=== PATIENT | female | born 1950 | race Caucasian/White ===

== ENCOUNTER 2025-01-11 19:30 | Observation (INO) | payer MEDICARE, SELFPAY ==
[2025-01-11] VITALS (13 sets, daily range): BP systolic 127–156; BP diastolic 70–92; PULSE 65–93; RESP 16–18; TEMP 36.9–37.2; O2SAT 93–100; BMI 21.2; BMI 21.8
--- NOTE | 2025-01-11 19:38 | CRLHL7_ITS ---
For Patients: As a result of the Century Cures Act, medical imaging exams and procedure reports are released immediately into your electronic medical record. You may view this report before your referring provider. If you have questions, please contact your health care provider. INDICATION: Acute stroke. TECHNIQUE: CTA neck with contrast bolus tracking, 3D angiographic rendering using maximum intensity projection (MIP) and images permanently archived. FINDINGS: There is carotid atherosclerosis bilaterally. There is no significant carotid artery stenosis or dissection. There is no significant vertebral artery stenosis or dissection. The soft tissues of the neck are within normal limits. The cervical spine is in normal alignment. Degenerative changes are noted in the cervical spine. IMPRESSION: No significant carotid or vertebral artery stenosis or dissection. The left JAY occlusion described in the CTA head report is likely artifactual. Please note that all CT scans at this facility use dose modulation, iterative reconstruction, and/or weight-based dosing when appropriate to reduce radiation dose to as low as reasonably achievable. Dictated by Hunter Bello MD @ 01/12/2025 12:24:29 PM (Electronically Signed)
--- NOTE | 2025-01-11 19:38 | CRLHL7_ITS ---
For Patients: As a result of the Century Cures Act, medical imaging exams and procedure reports are released immediately into your electronic medical record. You may view this report before your referring provider. If you have questions, please contact your health care provider. INDICATION: Acute stroke. TECHNIQUE: CTA head with contrast bolus tracking, 3D angiographic rendering using maximum intensity projection (MIP) and images permanently archived. FINDINGS: There is scattered intracranial atherosclerotic disease. There is a left JAY occlusion. There is no large vessel occlusion. No aneurysm is identified. IMPRESSION: No large vessel occlusion. Please note that all CT scans at this facility use dose modulation, iterative reconstruction, and/or weight-based dosing when appropriate to reduce radiation dose to as low as reasonably achievable. Dictated by Hunter Bello MD @ 01/12/2025 12:22:21 PM (Electronically Signed)
--- NOTE | 2025-01-11 19:38 | CRLHL7_ITS ---
For Patients: As a result of the Cures Act, medical imaging exams and procedure reports are released immediately into your electronic medical record. You may view this report before your referring provider. If you have questions, please contact your health care provider. INDICATION: Dyspnea. TECHNIQUE: Chest radiograph, 1 view. COMPARISON: None. FINDINGS: Cardiovascular/Mediastinum: Normal heart size. Unremarkable. Lungs: No focal consolidation. Airways: Trachea remains midline. Pleura: No pleural effusions or pneumothorax. Bones: No acute osseous abnormalities. Upper abdomen: Unremarkable. IMPRESSION: No acute cardiopulmonary process. Dictated by Kiel Mckay MD @ 01/11/2025 8:22:53 PM (Electronically Signed)
--- NOTE | 2025-01-11 19:38 | CRLHL7_ITS ---
For Patients: As a result of the Century Cures Act, medical imaging exams and procedure reports are released immediately into your electronic medical record. You may view this report before your referring provider. If you have questions, please contact your health care provider. INDICATION: L facial droop, numbness L face and arm, slurred speech TECHNIQUE: CT of the head without contrast. Coronal and sagittal reformats. Bone and soft tissue algorithms. COMPARISON: No prior studies available for comparison at this institution. FINDINGS: No acute intracranial hemorrhage or extra-axial collection. No evidence of acute cortical infarction. No mass effect or midline shift. Mild generalized parenchymal volume loss. Mild regions of decreased attenuation within the periventricular and subcortical white matter of both cerebral hemispheres most likely reflect chronic microvascular ischemic disease and age related change in this patient. Vascular calcifications within the carotid siphons. Orbital contents are normal. No calvarial fractures. No lytic or sclerotic osseous lesions within the calvarium or skull base. Scalp and other imaged soft tissue structures are normal. Mastoid air cells are clear. IMPRESSION: No acute intracranial abnormality. Please note that all CT scans at this facility use dose modulation, iterative reconstruction, and/or weight-based dosing when appropriate to reduce radiation dose to as low as reasonably achievable. Dictated by Figueroa Moya MD @ 01/11/2025 8:14:49 PM (Electronically Signed)
--- NOTE | 2025-01-11 19:39 | ED.GENADULT ---
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 She does have type 2 diabetes. No history of stroke, cerebrovascular disease, heart attack, or other vascular disease. No history of AFib. She is not on any anticoagulants. About 15 minutes prior to arrival she had onset of neurologic symptoms including some slurred speech and left facial droop affecting left corner of her mouth. She also felt a little bit of numbness of her left arm and maybe weakness of her left arm temporarily that is now gone. Also just a funny feeling affecting the left side of her body including the arm and leg. She does not have a headache. Vision is normal. She has not had any previous symptoms like this. No other illness lately. She was eating birthday cake at her granddaughter's birthday democrat. Her blood sugar obtained at triage is a bit higher than normal at 333. Related Data Allergies Allergy/AdvReac Type Severity Reaction Status Date / Time No Known Drug Allergies Allergy Verified 01/11/25 19:56 [facility] Medical History (Updated 01/11/25 @ 22:41 by Vinod Suarez MD) Essential hypertension ?I10 - Essential (primary) hypertension (ICD-10) Vitamin D deficiency ?E55.9 - Vitamin D deficiency, unspecified (ICD-10) Hyperlipidemia ?E78.5 - Hyperlipidemia, unspecified (ICD-10) Diabetic neuropathy ?E11.40 - Type 2 diabetes mellitus with diabetic neuropathy, unspecified (ICD-10) Chronic migraine Osteoarthritis ?M19.90 - Unspecified osteoarthritis, unspecified site (ICD-10) Diabetes mellitus type II, controlled ?E11.9 - Type 2 diabetes mellitus without complications (ICD-10) Surgical History Status post right knee replacement ?Z96.651 - Presence of right artificial knee joint (ICD-10) S/P total abdominal hysterectomy and bilateral salpingo-oophorectomy ?Z90.710 - Acquired absence of both cervix and uterus (ICD-10) ?Z90.722 - Acquired absence of ovaries, bilateral (ICD-10) ?Z90.79 - Acquired absence of other genital organ(s) (ICD-10) Status post cataract extraction ?Z98.49 - Cataract extraction status, unspecified eye (ICD-10) Family History Mother Breast cancer Diabetes Father High blood pressure Social History What is your current living situation?: I presently have a place to live Problems where you live: no known problems Problems where you live details: n/a In the past 12 months, utilities in danger of being shut off: no In past 12 months, lack of transportation kept you from medical appts, meetings, work, or getting things needed for daily living: no In the past 12 mos, have been you worried that your food would run out before you had money to buy more?: never true In the past 12 mos, the food you bought just didn't last and you didn't have money to buy more?: never true Smoking Status: Never smoker How often do you have a drink containing alcohol: 2-4 times a month Alcohol type: wine How often do you have six or more drinks on one occasion: Never AUDIT-C Alcohol total score: 2 Non-prescribed substance use: denies use Caffeine: No How often does anyone, including family, friends and others, physically hurt you: never How often does anyone, including family, friends and others, insult or talk down to you: never How often does anyone, including family, friends and others, threaten you with harm: never How often does anyone, including family, friends and others, scream or curse at you: never service: No Exam Narrative: Exam Narrative: Constitutional: Appears well-developed and well-nourished. Alert. Conversant. Non toxic. HENT: Head: Atraumatic. Nose: Nose normal. Mouth/Throat: Oral mucosa is clear and moist. no trismus. Pharynx normal. Tonsils symmetric. No tonsillar enlargement, erythema, or exudate. Eyes: Conjunctivae normal. EOM normal. Pupils equal, round, and reactive to light. No scleral icterus. Neck: Normal range of motion. Neck supple. No tracheal deviation present. Cardiovascular: Normal rate, regular rhythm. No gallop. No friction rub. No murmur heard. Symmetric radial artery pulses Pulmonary/Chest: Effort normal. No stridor. No respiratory distress. No wheezes. No rales. No rhonchi . Abdominal: Soft. Nondistended. Musculoskeletal: RUE: Normal range of motion. No tenderness. No deformity LUE: Normal range of motion. No tenderness. No deformity RLE: Normal range of motion. No edema. No tenderness. No deformity LLE: Normal range of motion. No edema. No tenderness. No deformity Lymph: No cervical adenopathy. Neurological: Mental status normal. Attention normal. Alert and oriented x3. GCS 15. Memory normal. Speech slightly slurred. Cognition normal. Cranial Nerves intact II-XII except for left facial droop affecting her lower face but not her forehead. Subtle subjective paresthesias on the lower 2/3 of her left face. I did not formally test gag or visual acuity. Visual benavides are full to confrontation. EOMI. Palate elevates symmetrically and tongue protrudes in the midline. Strength: 5/5 trapezius on the right and left 5/5 deltoid on the right and left 5/5 biceps on the right and left 5/5 triceps on the right and left 5/5 district wildlife manager on the right and left 5/5 thumb opposition on the right and left 5/5 finger abduction on the right and left 5/5 hip flexors (L3) on the right and left 5/5 quadriceps (L4) on the right and left 5/5 tibialis anterior on the right and left 5/5 EHL (L5) on the right and left 5/5 gastrocnemius (S1) on the right and left 5/5 hamstring on the right and left Sensation subjective intact to light touch in both upper extremities (C4-T1) Sensation subjectively intact to light touch in Both lower extremities (L4-S1). Finger to nose and coordination normal. Gait normal. Psychiatric: Normal mood. Normal affect. Very polite. Const: Vital Signs, click to edit/add: Vital Signs - 24 hr 01/11/25 19:31 01/11/25 20:15 01/11/25 20:16 Temperature 99 F Pulse Rate 79 82 Pulse Rate [Pulse Oximeter] 85 Respiratory Rate 16 18 Blood Pressure 150/81 H Blood Pressure [Ri ght Upper Arm] 156/92 H Pulse Oximetry 99 100 93 Oxygen Delivery Me thod Room Air 01/11/25 20:17 01/11/25 20:30 01/11/25 20:32 Temperature Pulse Rate 86 87 76 Pulse Rate [Pulse Oximeter] Respiratory Rate 18 Blood Pressure 148/86 H 143/87 H 142/75 H Blood Pressure [Ri ght Upper Arm] Pulse Oximetry 99 98 99 Oxygen Delivery Me thod 01/11/25 20:33 01/11/25 20:45 01/11/25 20:47 Temperature Pulse Rate 81 81 83 Pulse Rate [Pulse Oximeter] Respiratory Rate 16 Blood Pressure 136/77 Blood Pressure [Ri ght Upper Arm] Pulse Oximetry 97 95 99 Oxygen Delivery Me thod 01/11/25 20:48 01/11/25 21:00 Temperature Pulse Rate 93 80 Pulse Rate [Pulse Oximeter] Respiratory Rate Blood Pressure Blood Pressure [Ri ght Upper Arm] Pulse Oximetry 99 98 Oxygen Delivery Me thod Course Course ED Course: Back from CT. Stroke Neurology consult complete by tele stroke. Dr. Grajeda feels that her NIH is improving and is actually down to 1. I recheck the patient and she still does have a slight dull left facial droop and a very subtle slurred speech but otherwise normal. NIH is definitely improving. Arm symptoms are now totally resolved. At this point with mild ongoing symptoms and overall improving symptoms, stroke Neurology and I agree that the risk of the bleeding from thrombolytics would outweigh the benefit. However the patient will be admitted for monitoring and further workup as to the cause of the stroke. Dr. Grajeda recommends treatment with anti-platelet agents for now-ordered here in the ER. Vital Signs Vital signs: Initial Vital Signs Temperature 99 F 01/11/25 19:31 Temperature Source Temporal Artery Scan 01/11/25 19:31 Pulse Rate 85 01/11/25 19:31 Respiratory Rate 16 01/11/25 19:31 Blood Pressure 156/92 H 01/11/25 19:31 Blood Pressure Mean 113 H 01/11/25 19:31 Blood Pressure Position Sitting 01/11/25 19:31 Pulse Oximetry 99 01/11/25 19:31 Oxygen Delivery Method Room Air 01/11/25 19:31 Vital Signs Temperature 99 F 01/11/25 19:31 Pulse Rate 85 01/11/25 19:31 Respiratory Rate 16 01/11/25 19:31 Blood Pressure 156/92 H 01/11/25 19:31 Pulse Oximetry 99 01/11/25 19:31 Oxygen Delivery Method Room Air 01/11/25 19:31 Temperature 98.5 F 01/11/25 23:26 Pulse Rate 65 01/11/25 23:26 Respiratory Rate 16 01/12/25 00:55 Blood Pressure 128/85 01/11/25 23:26 Pulse Oximetry 94 01/12/25 00:55 Oxygen Delivery Method Room Air 01/12/25 00:55 Medications Administered Medications: Generic Name Dose Route Start Last Admin Trade Name Freq PRN Reason Stop Dose Admin Rosuvastatin Calcium 10 mg 01/11/25 22:35 01/11/25 23:58 Rosuvastatin Calcium 10 Mg Tablet PO 10 mg HS STEPHEN Administration Sitagliptin Phosphate 100 mg 01/11/25 22:35 01/11/25 23:54 Sitagliptin Phosphate 50 Mg Tablet PO Not Given HS STEPHEN Discontinued Medications Generic Name Dose Route Start Last Admin Trade Name Freq PRN Reason Stop Dose Admin Aspirin 325 mg 01/11/25 20:37 01/11/25 20:43 Aspirin Ec 325 Mg Tablet PO 01/11/25 20:38 325 mg ONCE ONE Administration Clopidogrel Bisulfate 300 mg 01/11/25 20:37 01/11/25 20:46 Clopidogrel 300 Mg Tablet PO 01/11/25 20:38 300 mg ONCE ONE Administration Medical Decision Making [facility] Narrative Medical decision making narrative: Very pleasant 74-year-old female with a history of diabetes. She presents to the ER today with acute neurologic symptoms including left facial droop, and left facial numbness, mildly slurred speech, transient left arm and leg numbness and transient left arm weakness. Now all symptoms are resolved. Except for very subtle ongoing left facial droop and very mildly slurred speech. Symptoms concerning for acute stroke. Differential here would include non stroke etiology such as Stevenson's palsy (however with the associated arm and leg symptoms, and sparing of the forehead, I do not think this represent Stevenson's). No antecedent seizure. No recent head trauma. No evidence for intracranial bleeding on her head CT. Blood sugar is elevated at 300 but that is atypical for her and apparently is related to birthday cake. She was out to dinner for her granddaughter's birthday when symptoms began. There is no evidence for DKA or nonketotic hyperosmolar coma. Laboratory workup was otherwise reassuring. Head CT is negative for bleed. Although this patient is in the window for thrombolytics, given overall mild symptoms and very good progression towards resolution here in the ER, at this point we feel that the risk of bleeding from thrombolytic would outweigh the benefit. Therefore thrombolytics was not administered here in the ER. Lab Data Labs: Lab Results 01/11/25 Range/Units 14:48 WBC 6.31 (4.50-11.00) K/uL RBC 3.95 L (4.00-5.20) m/uL Hgb 12.6 (12.0-16.0) gm/dL Hct 37.4 (33.0-51.0) % MCV 95 (80-100) fL MCH 32 (26-34) pg MCHC 34 (32-36) gm/dL RDW Coeff of [place] 12.8 (11.5-15.5) % Plt Count 254 (140-440) K/uL Neut % (Auto) 52.9 (42.0-72.0) % Lymph % (Auto) 29.3 (20-44) % [place] % (Auto) 12.5 H (0.0-11.0) % Eos % (Auto) 4.0 (0.0-7.0) % Baso % (Auto) 1.1 (0.0-3.0) % Neut # (Auto) 3.34 (1.7-7.0) K/uL Lymph # (Auto) 1.85 (0.90-2.90) K/uL [place] # (Auto) 0.80 (0.00-0.90) K/UL Eos # (Auto) 0.25 (0.00-0.50) K/uL Baso # (Auto) 0.07 (0.00-0.30) K/uL Abs Immat Gran (auto) 0.01 (0.00-0.30) K/uL Imm/Tot Granulo (auto) 0.2 % INR 0.99 (0.91-1.10) Sodium 129 L (135-149) mmol/L Potassium 4.6 (3.6-5.1) mmol/L Chloride 98 (96-114) mmol/L Carbon Dioxide 21 (20-32) mmol/L Anion Gap 10 (7-15) mEq/L BUN 23 (7-30) mg/dL Creatinine 0.7 (0.5-1.5) mg/dL Estimated Creat Clear 53.89 Estimated GFR 92 ml/min Glucose 332 H (60-115) mg/dL Calcium 8.6 (8.4-10.6) mg/dL Magnesium 2.1 (1.5-2.6) mg/dL Troponin I < 0.01 (0.01-0.04) ng/mL Imaging Data CTA head and neck: Attestation: I have reviewed the pertinent imaging results. Radiologist's impression: Preliminary Report: CTA head: 1. No evidence of proximal artery occlusion, high grade stenosis, aneurysm, dissection, or vascular malformation. 2. Final report per neurointerventional radiology service. Preliminary Report: CTA neck: 1. No evidence of proximal artery occlusion, high grade stenosis, aneurysm, dissection, or vascular malformation. 2. 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 Left vertebral artery terminates as the PICA, normal variants. 3. Approx 50 percent right ICA stenosis. No left ICA stenosis. ECG Data Attestation: I personally reviewed and interpreted this ECG as follows: Interpretation: Normal sinus rhythm Rate 79 ID interval 154 . Possible left atrial enlargement Normal QRS axis No ST segment elevation or depression. QTC 431 Discharge Plan Discharge Clinical Impression: Cerebrovascular accident Patient Disposition: Admitted As Observation
[2025-01-11 19:55] LABS: Hematocrit 37.4 % (33.0-51.0); Hemoglobin* 12.6 gm/dL (12.0-16.0); Immature Granulocytes Abs Auto 0.01 K/uL (0.00-0.30); Immature Granulocytes Pct Auto 0.2 %; Lymphocytes Absolute Auto 1.85 K/uL (0.90-2.90); Mean Corpuscular HGB Conc 34 gm/dL (32-36); Mean Corpuscular Hemoglobin 32 pg (26-34); Mean Corpuscular Volume 95 fL (80-100); RDW Coefficient of Variation % 12.8 % (11.5-15.5); Red Blood Count 3.95 m/uL (4.00-5.20); White Blood Count* 6.31 K/uL (4.50-11.00)
[2025-01-11 20:08] LABS: Chloride* 98 mmol/L (96-114); Potassium* 4.6 mmol/L (3.6-5.1); Sodium* 129 mmol/L (135-149)
[2025-01-11 20:11] LABS: Anion Gap 10 mEq/L (7-15); Blood Urea Nitrogen* 23 mg/dL (7-30); Carbon Dioxide* 21 mmol/L (20-32); Creatinine* 0.7 mg/dL (0.5-1.5); Est. Creatinine Clearance* 53.89; Estimated Glomerular Filt Rate 92 ml/min; INR 0.99 (0.91-1.10); Prothrombin Time 13.9 Seconds
[2025-01-11 20:12] LABS: Calcium* 8.6 mg/dL (8.4-10.6); Glucose* 332 mg/dL (60-115)
[2025-01-11 20:14] LABS: Slide Review Reflex No
[2025-01-11] MEDS: ASPIRIN EC 325 MG TABLET PO (20:43)
[2025-01-11] MEDS: CLOPIDOGREL 300 MG TABLET PO (20:46)
--- NOTE | 2025-01-11 22:30 | P.IMHP_ITS ---
Assessment and Plan Assessment and plan (1) Cerebrovascular accident: Problem comment: - 01/11/2025: transient left facial droop and numbness, left upper extremity weakness and numbness Status: Acute (2) Diabetes mellitus type II, controlled: Problem comment: - HgA1C was 7.8 on 01/10/2025, last 3 checks Status: Acute (3) Essential hypertension: Problem comment: - controlled Status: Acute (4) Hyperlipidemia: Problem comment: - not medically managed on admission 01.11.2025 but willing to initiate therapy Status: Acute Plan 1. Reviewed impression, plans, recommendation with patient, , and son 2. Answered their questions 3. They are agreeable with above stated plans and recommendations Total Time Spent Total Time Spent: 65 minutes Hospitalist- H&P: HPI History of Present Illness Date Seen: 01/11/25 Chief complaint: possible stroke Narrative: Melissa Larsen is a 74 year old woman was in her usual health until around 6:30 p.m. on 01/11/2025 when she had the sudden onset of left facial droop and numbness with associated slurred speech as well as left upper extremity weakness and numbness. Has never had anything like this in the past. She immediately told her who brought her to the emergency department promptly. By the time she arrived at the emergency department the left upper extremity symptoms had already resolved and much of left facial symptoms started to resolve. There was still transient left facial weakness apparent nevertheless. CT scan of head demonstrated no acute intracranial abnormalities. CT angiogram of head and neck demonstrated no significant abnormalities either. Patient had emergent consultation with Stroke Neurology who recommended admission to the hospital for observation, dual anti-platelet therapy with aspirin 325 mg and clopidogrel 300 mg once, and then aspirin 81 mg daily and clopidogrel 75 mg daily for 3 weeks, followed by monotherapy with either aspirin 3 and 25 mg once daily or clopidogrel 75 mg once daily thereafter. Neurologist recommended permissive hypertension, maintain euglycemia, monitor for cardiac arrhythmia, DVT prophylaxis, MRI of head, fasting lipid profile, hemoglobin A1c. Review of Systems Status of ROS: Reports: 6 or more systems reviewed and unremarkable except as noted in History and below Narrative: Working with her primary clinical manager home care in regard to all her health care inc luding diabetes mellitus type 2 and hypertension as well as recent unexplained weight loss of about 10-15 lb with most recent weight 150-151 lb. No recent trauma, injury, blood loss of any sort. No recent illnesses, fevers, rigors, diaphoresis. Usual state of health with no cardiopulmonary, gastrointestinal, genitourinary concerns. Medical Decision Making Medical Decision Making Code Status: Full resuscitation in event of cardiopulmonary demise During This Stay, Who Would You Like To Make Decisions For You In The Event You Are Unable To Make Them For Yourself?: , Mendez, Relevant situational information: Does not want to be kept alive in a persistent of vegetative state [facility] Medical History (Updated 01/11/25 @ 22:41 by Vinod Suarez MD) Essential hypertension ?I10 - Essential (primary) hypertension (ICD-10) Vitamin D deficiency ?E55.9 - Vitamin D deficiency, unspecified (ICD-10) Hyperlipidemia ?E78.5 - Hyperlipidemia, unspecified (ICD-10) Diabetic neuropathy ?E11.40 - Type 2 diabetes mellitus with diabetic neuropathy, unspecified (ICD-10) Chronic migraine Osteoarthritis ?M19.90 - Unspecified osteoarthritis, unspecified site (ICD-10) Diabetes mellitus type II, controlled ?E11.9 - Type 2 diabetes mellitus without complications (ICD-10) Surgical History Status post right knee replacement ?Z96.651 - Presence of right artificial knee joint (ICD-10) S/P total abdominal hysterectomy and bilateral salpingo-oophorectomy ?Z90.710 - Acquired absence of both cervix and uterus (ICD-10) ?Z90.722 - Acquired absence of ovaries, bilateral (ICD-10) ?Z90.79 - Acquired absence of other genital organ(s) (ICD-10) Status post cataract extraction ?Z98.49 - Cataract extraction status, unspecified eye (ICD-10) Family History Mother Breast cancer Diabetes Father High blood pressure Meds Home Medications and Allergies Allergies Allergy/AdvReac Type Severity Reaction Status Date / Time No Known Drug Allergies Allergy Verified 01/11/25 19:56 Exam Const: Vital Signs, click to edit/add: Vital Signs - 24 hr 01/11/25 19:31 01/11/25 20:15 01/11/25 20:16 Temperature 99 F Pulse Rate 79 82 Pulse Rate [Pulse Oximeter] 85 Respiratory Rate 16 18 Blood Pressure 150/81 H Blood Pressure [Ri ght Upper Arm] 156/92 H Pulse Oximetry 99 100 93 [facility] 01/11/25 20:17 01/11/25 20:30 01/11/25 20:32 Temperature Pulse Rate 86 87 76 Pulse Rate [Pulse Oximeter] Respiratory Rate 18 Blood Pressure 148/86 H 143/87 H 142/75 H Blood Pressure [Ri ght Upper Arm] Pulse Oximetry 99 98 99 [facility] 01/11/25 20:33 01/11/25 20:45 01/11/25 20:47 Temperature Pulse Rate 81 81 83 Pulse Rate [Pulse Oximeter] Respiratory Rate 16 Blood Pressure 136/77 Blood Pressure [Ri ght Upper Arm] Pulse Oximetry 97 95 99 [facility] 01/11/25 20:48 01/11/25 21:00 Temperature Pulse Rate 93 80 Pulse Rate [Pulse Oximeter] Respiratory Rate Blood Pressure Blood Pressure [Ri ght Upper Arm] Pulse Oximetry 99 98 [facility] - H&P: Result Labs Labs: Short CBC 01/11/25 Range/Units 14:48 WBC 6.31 (4.50-11.00) K/uL Hgb 12.6 (12.0-16.0) gm/dL Hct 37.4 (33.0-51.0) % Plt Count 254 (140-440) K/uL BMP 01/11/25 14:48 Sodium 129 L Potassium 4.6 Chloride 98 Carbon Dioxide 21 BUN 23 Creatinine 0.7 Glucose 332 H Calcium 8.6 Cardiac Enzymes 01/11/25 Range/Units 14:48 Troponin I < 0.01 (0.01-0.04) ng/mL Imaging CT scan - head: Attestation: I have reviewed the pertinent imaging results. Radiologist's impression: No acute intracranial abnormalities. CT head and neck angiogram: Radiologist's impression: No major abnormalities noted
[2025-01-11] MEDS: ROSUVASTATIN CALCIUM 10 MG TABLET PO (23:58)
--- NOTE | 2025-01-12 00:05 | CRLHL7_ITS ---
For Patients: As a result of the Century Cures Act, medical imaging exams and procedure reports are released immediately into your electronic medical record. You may view this report before your referring provider. If you have questions, please contact your health care provider. Indication: Transient left facial droop and dysarthria Technique: Multiplanar, multisequence MR images of the brain were obtained without the administration of IV contrast. Comparison: CT head January 11, 2025 Findings: On midline sagittal T1 images there are preserved flow voids within the sagittal sinuses. The corpus callosum is preserved in signal and contour. The pituitary gland is unremarkable without evidence of remodeling of the sella turcica. There is no significant cerebellar tonsillar ectopia. On diffusion-weighted sequences, there is demonstration of a punctate focus of restricted diffusion within the right dunaway radiata white matter with minimal cytotoxic edema. Otherwise, no evidence of additional foci of restricted diffusion. On blood sensitive sequences, there is no evidence of or chronic hemorrhage. Again seen is global cortical atrophy with sulcal widening and ex vacuo dilatation of the lateral ventricles. There is moderate chronic small vessel disease change within the subcortical and periventricular white matter. Additional chronic small vessel disease changes of the central alexis and midbrain are appreciated. Otherwise, the remaining brain parenchyma is preserved in signal intensity. The flow voids at the skull base are unremarkable. The orbits and their contents are within normal limits. There is extensive mucosal thickening within the paranasal sinuses. The mastoid air cells are clear. Impression: 1. Demonstration of an evolving subacute lacunar infarct within the right dunaway radiata white matter. No evidence of large territorial infarct. 2. Otherwise, age related and chronic small-vessel disease changes of the brain without acute intracranial abnormality. Dictated by Mauricio Curran MD @ 01/12/2025 10:09:49 AM (Electronically Signed)
[2025-01-12 00:55] VITALS: RESP 16; O2SAT 94
[2025-01-12 03:00] VITALS: BP 130/73; PULSE 73; RESP 16; O2SAT 98
--- NOTE | 2025-01-12 06:49 | PC.NURSE ---
The patient is pleasant with cares. Most of the patients neuro symptoms that brought her to the ED have resolved, the one lingering symptom she has is some numbness and tingling inside of her L cheek. Hr and all other VS are stable. Up ad loren. SCDS on throughout the night. The patient has chronic neuropathy in BLE, she reported that the SCDS helped with the pain. EKG completed this AM per ordeer, MRI and ECHO to happen today. The patient hopes to go home after these. Tracee BENNETT BSN
[2025-01-12 07:35] VITALS: BP 150/98; PULSE 90; RESP 18; TEMP 36.9; O2SAT 98
[2025-01-12 08:35] VITALS: PULSE 77
[2025-01-12] MEDS: ASPIRIN 81 MG TABLET EC PO (09:28)
[2025-01-12] MEDS: SODIUM CHLORIDE 0.9 % (FLUSH) 10 ML SYRINGE 5 ML IVF (09:29)
[2025-01-12] MEDS: CLOPIDOGREL 75 MG TABLET PO (09:29)
--- NOTE | 2025-01-12 10:28 | NUTR.NU ---
Nutrition Education r/t MD consult for stroke and type 2 diabetes. Diet order Diabetic, Heart Healthy Diet. Intake 100% at breakfast. Admit CVA. Patient reports a long history of diabetes with past education received. She reports no need for additional education. Accepted handouts of Heart-Healthy Consistent Nutrition (NCM) and Healthy Plate for diabetes. Encouraged patient to contact if questions. Monitor and follow up if needed.
[2025-01-12 11:00] VITALS: BP 146/83; PULSE 70; RESP 18; O2SAT 98
--- NOTE | 2025-01-12 13:17 | PM.DS1 ---
DS: Providers Provider Date Seen: 01/12/25 Date of admission: 01/11/25 21:01 Primary care physician: Not a Local Provider Admitting Clinician: Vinod Suarez MD Consults: 01/11/25 22:35 Consult to Nutrition [CONS] Routine Comment: Reason for consult:: Miscellaneous Comment: stroke, DMTii Consult to Occupational Therapy [CONS] Routine Comment: Reason(s) for OT Consult:: Evaluate and Treat Any Restrictions?:: No Restrictions Consult to Physical Therapy [CONS] Routine Comment: Reason(s) for PT Consult:: Evaluate and Treat Any Restrictions?:: No Restrictions Consult to Speech Therapy [CONS] Routine Comment: Reason(s) for Speech Consult:: Speaking Difficulty Comment: transient dysarthria Attending Physician on discharge: Demi Dougherty [facility] [place] [facility] Date of Discharge: 01/12/25 DS: Diagnosis Discharge Diagnosis (1) Cerebrovascular accident: Status: Acute Problem details: - 01/11/2025: transient left facial droop and numbness, left upper extremity weakness and numbness MRI 01/12 shows demonstration of an evolving subacute lacunar infarct within the right dunaway radiata white matter. 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 Please call the clinic scheduling department at [phone] to schedule your appointment. (2) Diabetes mellitus type II, controlled: Status: Acute Problem details: - HgA1C was 7.8 on 01/10/2025, last 3 checks (3) Essential hypertension: Status: Acute Problem details: - controlled Resume home medications on 01/13 (4) Hyperlipidemia: Status: Acute Problem details: - not medically managed on admission 01.11.2025 but willing to initiate therapy Discharged on rosuvastatin 10 mg daily DS: Summary Hospital Course Hospital Course: Course of care and details as noted above. Patient admitted overnight for observation. No recurrence of symptoms. Have resolved at this time. PT/OT evaluations without recommendations for ongoing acute therapies. BUDGET CONTROLLER to be completed as outpatient. Will continue on aspirin and Plavix. Will need outpatient follow-up in neurology clinic in 6 weeks (patient was given this phone number to schedule). Close follow-up with PCP. Status at Discharge Functional status at discharge: independent ambulation Overall status at discharge: patient is back to baseline Time Spent with Patient Time attestation: Total time spent providing and/or coordinating discharge services: Time spent: Greater than 30 minutes Exam Narrative: Exam Narrative: PHYSICAL EXAM General: Pleasant, conversant, NAD Cardiovascular: RRR Pulmonary: No dyspnea Neurological: Alert, answering questions appropriately, no acute focal findings Skin: Warm, dry. Const: Vital Signs, click to edit/add: Vital Signs - 24 hr 01/11/25 19:31 01/11/25 20:15 01/11/25 20:16 Temperature 99 F Pulse Rate 79 82 Pulse Rate [Pulse Oximeter] 85 Respiratory Rate 16 18 Blood Pressure 150/81 H Blood Pressure [Le ft Arm] Blood Pressure [Ri ght Upper Arm] 156/92 H Pulse Oximetry 99 100 93 Oxygen Delivery Me thod Room Air 01/11/25 20:17 01/11/25 20:30 01/11/25 20:32 Temperature Pulse Rate 86 87 76 Pulse Rate [Pulse Oximeter] Respiratory Rate 18 Blood Pressure 148/86 H 143/87 H 142/75 H Blood Pressure [Le ft Arm] Blood Pressure [Ri ght Upper Arm] Pulse Oximetry 99 98 99 Oxygen Delivery Me thod 01/11/25 20:33 01/11/25 20:45 01/11/25 20:47 Temperature Pulse Rate 81 81 83 Pulse Rate [Pulse Oximeter] Respiratory Rate 16 Blood Pressure 136/77 Blood Pressure [Le ft Arm] Blood Pressure [Ri ght Upper Arm] Pulse Oximetry 97 95 99 Oxygen Delivery Me thod 01/11/25 20:48 01/11/25 21:00 01/11/25 23:00 Temperature 98.8 F Pulse Rate 93 80 Pulse Rate [Pulse Oximeter] 70 Respiratory Rate 18 Blood Pressure Blood Pressure [Le ft Arm] 127/70 Blood Pressure [Ri ght Upper Arm] Pulse Oximetry 99 98 94 Oxygen Delivery Me thod Room Air 01/11/25 23:00 01/11/25 23:26 01/11/25 23:26 Temperature 98.5 F Pulse Rate 87 Pulse Rate [Pulse Oximeter] 65 Respiratory Rate 16 16 Blood Pressure Blood Pressure [Le ft Arm] 128/85 Blood Pressure [Ri ght Upper Arm] Pulse Oximetry 98 98 Oxygen Delivery La thod Room Air Room Air 01/12/25 00:55 01/12/25 03:00 01/12/25 07:35 Temperature 98.5 F Pulse Rate Pulse Rate [Pulse Oximeter] 73 90 Respiratory Rate 16 16 18 Blood Pressure Blood Pressure [Le ft Arm] 130/73 150/98 H Blood Pressure [Ri ght Upper Arm] Pulse Oximetry 94 98 98 Oxygen Delivery La thod Room Air Room Air Room Air 01/12/25 07:35 01/12/25 08:35 01/12/25 11:00 Temperature Pulse Rate 77 Pulse Rate [Pulse Oximeter] 70 Respiratory Rate 18 18 Blood Pressure Blood Pressure [Le ft Arm] 146/83 H Blood Pressure [Ri ght Upper Arm] Pulse Oximetry 98 98 Oxygen Delivery Me thod Room Air Room Air DS: Data Data Completed and Pending Labs on day of discharge: Labs from last 24 hours 01/11/25 14:48 WBC 6.31 RBC 3.95 L Hgb 12.6 Hct 37.4 MCV 95 MCH 32 MCHC 34 RDW Coeff of Lew 12.8 Plt Count 254 Neut % (Auto) 52.9 Lymph % (Auto) 29.3 [place] % (Auto) 12.5 H Eos % (Auto) 4.0 Baso % (Auto) 1.1 Neut # (Auto) 3.34 Lymph # (Auto) 1.85 [place] # (Auto) 0.80 Eos # (Auto) 0.25 Baso # (Auto) 0.07 Abs Immat Gran (auto) 0.01 Imm/Tot Granulo (auto) 0.2 INR 0.99 Sodium 129 L Potassium 4.6 Chloride 98 Carbon Dioxide 21 Anion Gap 10 BUN 23 Creatinine 0.7 Estimated Creat Clear 53.89 Estimated GFR 92 Glucose 332 H Calcium 8.6 Magnesium 2.1 Troponin I < 0.01 Discharge Plan Discharge Disposition: Home, Self-Care Date of Admission: 01/11/25 21:01 Attending Provider on Discharge: Demi Dougherty Primary Care Provider: Provider,Not a Local Condition: Improved Anticipated Discharge Date/Time: 01/12/25 13:06 Discharge Medications: New clopidogrel 75 mg Tablet 75 mg PO DAILY Qty: 20 0RF rosuvastatin 10 mg Tablet 10 mg PO HS Qty: 30 0RF Continued aspirin 81 mg tablet,delayed release (DR/EC) 81 mg PO DAILY cholecalciferol (vitamin D3) [Vitamin D3] 125 mcg (5,000 unit) tablet 125 mcg PO DAILY glipizide 10 mg tablet extended release 24hr 20 mg PO DAILY tramadol 50 mg tablet 50 mg PO Q6H PRN lisinopril 10 mg tablet 10 mg PO DAILY montelukast 10 mg tablet 10 mg PO QPM estradiol 0.5 mg tablet 0.5 mg PO DAILY Januvia 100 mg tablet 100 mg PO DAILY Discharge Orders: Discharge Order (Routine); Ordered 01/12/25 Ordered By: Demi Dougherty Patient Education: Clopidogrel (By mouth), Rosuvastatin (By mouth), Stroke (DC) Additional Instructions: YOU MAY RESUME TAKING YOUR BLOOD PRESSURE MEDICATION TOMORROW 01/13/25 DO NOT TAKE ANY TRIPTANS FOR YOUR MIGRAINES - THESE ARE CONTRAINDICATED FOLLOWING A STROKE RECOMMEND OUTPATIENT EVALUATION WITH SPEECH THERAPY - YOUR PCP CAN SCHEDULE THIS FOR YOU YOU WILL NEED TO MAKE AN OUTPATIENT NEUROLOGY APPOINTMENT IN 6 WEEKS - CALL [phone] RECOMMEND YOU SCHEDULE A FOLLOW UP APPOINTMENT WITH YOUR PCP IN THE NEXT 7-10 DAYS Activity Level: Activity as Tolerated Discharge Diet: Diabetic Follow Up Appointments: Provider,Not a Local [Primary Care Provider, Family Practice] Forms: [employer] Info Instructions
--- NOTE | 2025-01-12 14:08 | PC.NURSE ---
Pt doing well today. VSS. Afebrile. Denies pain. Denies dizziness. Denies numbness or tingling. 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 Pt ambulating independently in room and loaiza well, tolerating regular diet. Pt belongings and discharge instructions signed. Pt discharged home via at 1355.
== END 2025-01-12 13:55 | disposition home or self-care (01) ==
LOC: ED 20:59 → MEDSURG 21:02
PROVIDERS: Admitting Provider Internal Medicine; Emergency Provider Emergency Medicine; Visit Provider Internal Medicine
DX: I63.9 Cerebral infarction, unspecified (principal); E11.65 Type 2 diabetes mellitus with hyperglycemia; I10 Essential (primary) hypertension
CPT/HCPCS: 36415; 70450; 70496; 70498; 70551; 71045; 80048; 82962; 83735; 84484; 85025; 85610; 93005; 93306; 97112; 97161; 97165; 99284; 99285; 99291; A9270; G0378; Q9967